=== PATIENT | female | born 1990 | race Hispanic/Latino ===

== ENCOUNTER 2018-06-10 12:01 | Emergency (ER) | payer BC ==
[2018-06-10] MEDS ORDERED: Sodium Chloride 0.9% 1,000 ML IV STA (13:11)
--- NOTE | 2018-06-10 13:39 | ED PDOC ---
Syncope/Near Syncope/Dizziness Time Seen by Provider: 06/10/18 12:25 Chief Complaint (Nursing): Syncope Chief Complaint (Provider): Syncope History Per: Patient History/Exam Limitations: no limitations Onset/Duration Of Symptoms: Sudden Onset Current Symptoms Are (Timing): Better Additional Complaint(s): 27 year old female, approximately 10 weeks , arrives to the emergency department via EMS status post syncopal event prior to arrival. Patient states she was talking to her friend about the process of childbirth when she began to feel nausea and lightheadedness then passed out. At present, she denies any headache or further medical complaints. Patient reports she had a similar syncopal event in 9th grade and was evaluated at [facility] and [facility] for potential prolonged QT syndrome. She was subsequently diagnosed with neurally mediated hypotension. Otherwise, patient does not take any medications except for vitamins. PCP: none provided Past Medical History Reviewed: Historical Data, Nursing Documentation, Vital Signs Vital Signs: Last Vital Signs Temp 97.7 F 06/10/18 12:15 Pulse 40 L 06/10/18 12:15 Resp 18 06/10/18 12:15 BP 114/66 06/10/18 12:15 Pulse Ox 99 06/10/18 12:15 - Medical History PMH: No Chronic Diseases - Family History Family History: States: Unknown Family Hx - Immunization History Hx Tetanus Toxoid Vaccination: No Hx Influenza Vaccination: No Hx Pneumococcal Vaccination: No - Allergies Allergies/Adverse Reactions: Allergies Allergy/AdvReac Type Severity Reaction Status Date / Time No Known Allergies Allergy Verified 06/10/18 12:15 Review of Systems ROS Statement: Except As Marked, All Systems Reviewed And Found Negative Gastrointestinal: Positive for: Nausea Neurological: Positive for: Dizziness. Negative for: Headache Physical Exam - Reviewed Nursing Documentation Reviewed: Yes Vital Signs Reviewed: Yes - Physical Exam Appears: Positive for: No Acute Distress Head Exam: Positive for: ATRAUMATIC, NORMAL INSPECTION, NORMOCEPHALIC Skin: Positive for: Normal Color Eye Exam: Positive for: Normal appearance, EOMI, PERRL ENT: Positive for: Normal ENT Inspection. Negative for: Pharyngeal Erythema Neck: Positive for: Normal Cardiovascular/Chest: Positive for: Regular Rate, Rhythm Respiratory: Positive for: Normal Breath Sounds. Negative for: Respiratory Distress Gastrointestinal/Abdominal: Positive for: Normal Exam, Soft. Negative for: Tenderness Neurological/Psych: Positive for: Awake, Alert, Normal Tone, Oriented (x3). Negative for: Motor/Sensory Deficits - ECG O2 Sat by Pulse Oximetry: 99 (RA) Pulse Ox Interpretation: Normal Medical Decision Making Medical Decision Making: Time: 1219 Initial Plan: * EKG * Labs * Accucheck * IV fluids Time: 1225 --EKG: sinus bradycardia at 45 BMP. Blood pressure is, otherwise, stable. --- Scribe Attestation: Documented by Mary Avalos, acting as a scribe for Mary De La Fuente MD. Provider Scribe Attestation: All medical record entries made by the Scribe were at my direction and personally dictated by me. I have reviewed the chart and agree that the record accurately reflects my personal performance of the history, physical exam, medical decision making, and the department course for this patient. I have also personally directed, reviewed, and agree with the discharge instructions and disposition. Disposition - Disposition Forms: [employer] (Nepali)
[2018-06-10 15:14] LABS: BASO % 0.4 % (0.0-2.0); EOS # 0.1 K/uL (0.0-0.7); EOS % 1.4 % (0.0-4.0); LYMPH # 1.3 K/uL (1.0-4.3); LYMPH % 21.6 % (20.0-40.0); MEAN CELL VOLUME 95.1 fl (81.0-99.0); MEAN CORPUSCULAR HEMOGLOBIN 32.7 pg (27.0-31.0); MEAN CORPUSCULAR HGB CONC 34.4 g/dL (33.0-37.0); MEAN PLATELET VOLUME 10.8 fl (7.2-11.7); MONO # 0.7 K/uL (0.0-0.8); MONO % 11.4 % (0.0-10.0); NEUT % 65.2 % (50.0-75.0); NRBC % 0.2 % (0.0-0.0); RBC 3.96 Mil/uL (3.80-5.20); RED CELL DISTRIBUTION WIDTH 13.1 % (11.5-14.5); WHITE BLOOD COUNT 6.1 K/uL (4.8-10.8)
[2018-06-10 15:23] LABS: ALB/GLOB RATIO 1.4 (1.0-2.1); ALBUMIN 4.4 g/dL (3.5-5.0); ALT/SGPT 40 U/L (9-52); AST/SGOT 30 U/L (14-36); BLOOD UREA NITROGEN 11 mg/dl (7-17); CALCIUM 9.6 mg/dL (8.4-10.2); GFR NON-AFRICAN AMERICAN > 60
[2018-06-10] MEDS ORDERED: Potassium Chloride 20 mEq ER Tab PO STA (15:28)
--- NOTE | 2018-06-10 15:28 | ED PDOC ---
- Laboratory Results Result Diagrams: 06/10/18 13:54 06/10/18 13:54 Lab Results: Total Bilirubin 0.3 mg/dl (0.2-1.3) 06/10/18 13:54 AST 30 U/L (14-36) 06/10/18 13:54 ALT 40 U/L (9-52) 06/10/18 13:54 Alkaline Phosphatase 47 U/L (38-126) 06/10/18 13:54 Total Protein 7.5 G/DL (6.3-8.2) 06/10/18 13:54 Albumin 4.4 g/dL (3.5-5.0) 06/10/18 13:54 Globulin 3.1 gm/dL (2.2-3.9) 06/10/18 13:54 Albumin/Globulin Ratio 1.4 (1.0-2.1) 06/10/18 13:54 - ECG O2 Sat by Pulse Oximetry: 99 (RA) Medical Decision Making Medical Decision Making: Time: 1500 --Patient is endorsed to provider by Dr. De La Fuente, pending ED work up, re-evaluation, and final disposition. Time: 161 --Labs reviewed: (-) significant clinical abnormality. Upon provider ree valuation, patient is medically stable, reports improvement in symptoms, and requires no further treatment in the ED at this time. Patient will be discharged home and advised to follow up with SAFE DEPOSIT ATTENDANT. Counseling was provided and all questions were answered regarding diagnosis. There is agreement to discharge plan. Return if symptoms persist or worsen. Clinical Impression: vasovagal syncope Scribe Attestation: Documented by Mary Avalos, acting as a scribe for Sierra Jimenez MD. Provider Scribe Attestation: All medical record entries made by the Ingridibkimberly were at my direction and personally dictated by me. I have reviewed the chart and agree that the record accurately reflects my personal performance of the history, physical exam, medical decision making, and the department course for this patient. I have also personally directed, reviewed, and agree with the discharge instructions and disposition. Disposition - Clinical Impression Clinical Impression: Vasovagal syncope - POA Present On Arrival: None - Disposition Disposition: Routine/Home Disposition Time: 16:15 Condition: IMPROVED Additional Instructions: FOLLOW UP WITH YOUR SAFE DEPOSIT ATTENDANT EARLY NEXT WEEK Instructions: Syncope (Fainting) (DC), - The Third Month Forms: [facility] ED School/Work Excuse
[2018-06-10] MEDS ORDERED: Potassium Chloride 20 mEq ER Tab PO ONE (15:39)
[2018-06-10 17:22] VITALS: BP 107/51; PULSE 58; RESP 17; TEMP 98.6; O2SAT 100
--- NOTE | 2018-06-11 21:16 | CARD ---
APPROVED REPORT Date of service: 06/10/2018 EKG Measurement Heart [id number] <Conclusion> Marked sinus bradycardia Abnormal ECG
== END 2018-06-10 17:00 | disposition home or self-care (01) ==
LOC: H.ER 12:01
DX: O26.91 Pregnancy related conditions, unspecified, first trimester (principal); R55 Syncope and collapse
CPT/HCPCS: 80053; 82948; 83735; 84100; 85025; 93005; 96360; 99285; J7030